=== PATIENT | male | born 1990 | race Caucasian/White ===

== ENCOUNTER 2020-11-04 21:00 | Emergency (ER) | payer OTHER ==
[~2020-11-04] VITALS: Ht 185.4 cm; Wt 127.0 kg
[2020-11-04 21:05] VITALS: BP_SYST 153
[2020-11-04] MEDS ORDERED: FUROSEMIDE 20 MG TABLET PO ONE (23:00)
[2020-11-04 23:35] LABS: BILIRUBIN,URINE NEGATIVE (NEGATIVE); BLOOD, URINE NEGATIVE (NEGATIVE); CLARITY/URINE CLEAR (CLEAR); COLOR,URINE YELLOW (YELLOW); GLUCOSE,URINE NEGATIVE (NEGATIVE); KETONES,URINE NEGATIVE (NEGATIVE); LEUKOCYTE ESTERASE ,URINE NEGATIVE (NEGATIVE); NITRITE, URINE NEGATIVE (NEGATIVE); PH,URINE 6.5 (5.0-8.0); PROTEIN URINE NEGATIVE (NEGATIVE)
[2020-11-04 23:37] LABS: BASOPHILS % (AUTO) 0.4 % (0.0-2.0); EOSINOPHILS # (AUTO) 0.4 K/uL (0.0-0.4); EOSINOPHILS % (AUTO) 4.2 % (0.0-4.0); HEMATOCRIT 42.7 % (36-54); HEMOGLOBIN 14.6 g/dL (14.0-18.0); LYMPHOCYTES # (AUTO) 3.5 K/uL (1.0-5.5); MEAN CORPUSCULAR HEMOGLOBIN 32 pg (27-31); MEAN CORPUSCULAR HGB CONC 34 % (32-36); MEAN CORPUSCULAR VOLUME 92 fL (79.0-98.0); MONOCYTES # (AUTO) 0.7 K/uL (0.0-1.0); MONOCYTES % (AUTO) 7.4 % (1.7-9.3); NEUTROPHILS # (AUTO) 5.1 K/uL (1.8-7.7); PLATELET COUNT (AUTO) 241 K/uL (130-430); RED BLOOD CELL COUNT(AUTO) 4.65 MIL/uL (4.2-6.2); WHITE BLOOD COUNT (AUTO) 9.7 K/uL (4.8-10.8)
[2020-11-04 23:47] LABS: CALCIUM 8.3 mg/dL (8.4-11.0); CREATININE 1.08 mg/dL (0.55-1.30); POTASSIUM 3.8 mmol/L (3.5-5.1)
[2020-11-04 23:54] LABS: ALBUMIN 3.4 g/dL (3.4-4.8); TOTAL BILIRUBIN 0.5 mg/dL (0.0-1.0)
[2020-11-05] MEDS ORDERED: FURO-150 PO (01:08)
[2020-11-05 01:28] VITALS: BP_SYST 128
== END 2020-11-05 01:28 | disposition home or self-care (01) ==
LOC: SED 21:00
DX: R60.0 Localized edema (principal)
CPT/HCPCS: 36415; 71045; 80053; 81003; 82550; 83880; 84484; 85025; 93005; 93970; 99285

== ENCOUNTER 2023-01-17 19:45 | Emergency (ER) | payer OTHER ==
[~2023-01-17] VITALS: Ht 185.4 cm; Wt 136.1 kg
[~2023-01-17 19:45] MED LIST: FURO-150 PO
[2023-01-17 20:04] VITALS: BP_SYST 134; PULSE 110; RESP 21; TEMP 97.7; O2SAT 99
--- NOTE | 2023-01-17 20:11 | NUR ---
PATIENT PRESENTS WITH RIGHT LEG PAIN/INFECTION/REDNESS/ITCHINESS FOLLOWING A VEIN REMOVAL ON 12/29 AT [facility], AREA ABOVE CALF IS INFLAMMED WITH STITCHES INTACT, PATIENT INFORMED STITCHES WOULD DISSOLVE, AREA ON ANKLE HAS DRAINAGE WITH STITCHES INTACT, ANKLE SUTURE SITE APPEARS MACERATED AFTER BANDAGE REMOVAL, BANDAGE REMOVED BY MYSELF, HISTORY OF VENOUS STASIS, BOTH LOWER LEGS ARE DISCOLORED.
[2023-01-17] MEDS ORDERED: NACL 0.9% 1,000 ML IV ONE (20:30)
[2023-01-17] MEDS ORDERED: POTASSIUM CHLORIDE 20 MEQ TAB.PRT.SR PO ONE (20:30)
--- NOTE | 2023-01-17 20:32 | NUR ---
MD ASSESSMENT IN TRIAGE ROOM
[2023-01-17] MEDS ORDERED: CEPH-548 PO ×2 (20:34→20:49)
[2023-01-17] MEDS ORDERED: SULF1TAB48 PO ×2 (20:34→20:49)
[2023-01-17] MEDS ORDERED: HYDR-3917 PO (20:36)
--- NOTE | 2023-01-17 20:51 | NUR ---
Patient given written and verbal discharge instructions and verbalizes understanding. ER MD discussed with patient the results and treatment provided. Patient in stable condition. ID arm band removed. RX SENT TO PREFERRED PHARMACY Rx of given. Patient educated on pain management and to follow up with PMD. Pain Scale 5/10. Opportunity for questions provided and answered. Medication side effect fact sheet provided.
[2023-01-17 20:52] VITALS: BP_SYST 136; PULSE 109; RESP 20; TEMP 97.6; O2SAT 99
== END 2023-01-17 20:52 | disposition home or self-care (01) ==
LOC: SED 19:45
DX: L03.115 Cellulitis of right lower limb (principal); I87.8 Other specified disorders of veins; Z79.899 Other long term (current) drug therapy
CPT/HCPCS: 99283

== ENCOUNTER 2023-01-30 16:56 | Emergency (ER) | payer OTHER ==
[~2023-01-30] VITALS: Ht 185.4 cm; Wt 136.1 kg
[~2023-01-30 16:56] MED LIST changes: +CEPH-548 PO; +SULF1TAB48 PO
[2023-01-30 17:01] VITALS: BP_SYST 128; RESP 18; TEMP 97.3; O2SAT 98
--- NOTE | 2023-01-30 18:35 | NUR ---
Patient to ER bed 8 to gown for evaluation. Side rails up. Report given to YARELI.
[2023-01-30] MEDS ORDERED: CEPH-548 PO (19:05)
[2023-01-30] MEDS ORDERED: cephALEXin 500 MG CAPSULE PO ONE (19:15)
--- NOTE | 2023-01-30 19:17 | NUR ---
Pressure-Irrigated wound w. copious amounts of 0.9% N.S. mixed with Iodine. All insect larvae removed from wound prior to dressing application.
--- NOTE | 2023-01-30 19:20 | NUR ---
Pat-dried cleaned wound & dressed w. dried curlex dressing & tubular gauze. Patient tolerated procedure well. No signs of pain.
--- NOTE | 2023-01-30 19:41 | NUR ---
Patient given written and verbal discharge instructions and verbalizes understanding. ER sindiscussed with patient the results and treatment provided. Patient in stable condition. ID arm band removed. IV catheter removed intact and dressing applied, no active bleeding. Rx of keflex given. Patient educated on pain management and to follow up with PMD. Pain Scale . Opportunity for questions provided and answered. Medication side effect fact sheet provided.
== END 2023-01-30 19:41 | disposition home or self-care (01) ==
LOC: SED 16:56
DX: S91.301A Unspecified open wound, right foot, initial encounter (principal); L03.115 Cellulitis of right lower limb; B87.9 Myiasis, unspecified; Z79.899 Other long term (current) drug therapy; X58.XXXA Exposure to other specified factors, initial encounter; Y93.89 Activity, other specified; Y92.89 Other specified places as the place of occurrence of the external cause; Y99.8 Other external cause status
CPT/HCPCS: 99283

== ENCOUNTER 2023-04-09 15:40 | Emergency (ER) | payer OTHER ==
[~2023-04-09] VITALS: Ht 185.4 cm; Wt 136.1 kg
[2023-04-09 15:59] VITALS: BP_SYST 123; PULSE 111; RESP 16; TEMP 97.8; O2SAT 97
[2023-04-09] MEDS ORDERED: OXYC-133 PO (16:07)
[2023-04-09] MEDS ORDERED: NS 1000 ML IV.SOLN IV ONE (16:30)
[2023-04-09 17:02] LABS: BASOPHILS # (AUTO) 0.1 K/uL (0.0-0.2); BASOPHILS % (AUTO) 0.6 % (0.0-2.0); EOSINOPHILS # (AUTO) 0.4 K/uL (0.0-0.4); HEMATOCRIT 39.5 % (36-54); HEMOGLOBIN 13.2 g/dL (14.0-18.0); LYMPHOCYTES # (AUTO) 1.5 K/uL (1.0-5.5); LYMPHOCYTES % (AUTO) 14.8 % (20.5-51.5); MEAN CORPUSCULAR HEMOGLOBIN 30 pg (27-31); MEAN CORPUSCULAR HGB CONC 33 % (32-36); MEAN CORPUSCULAR VOLUME 90 fL (79.0-98.0); MONOCYTES # (AUTO) 0.9 K/uL (0.0-1.0); MONOCYTES % (AUTO) 9.2 % (1.7-9.3); NEUTROPHILS # (AUTO) 7.1 K/uL (1.8-7.7); NEUTROPHILS % (AUTO) 71.4 % (40.0-70.0); PLATELET COUNT (AUTO) 274 K/uL (130-430); RED BLOOD CELL COUNT(AUTO) 4.39 MIL/uL (4.2-6.2); RED CELL DISTRIBUTION WIDTH 13.9 % (9.0-15.0)
[2023-04-09 17:11] LABS: ANION GAP 3 (5-15); CALCIUM 7.6 mg/dL (8.4-11.0); CARBON DIOXIDE 32 mmol/L (23-29); CHLORIDE 107 mmol/L (98-107); CREATININE 0.99 mg/dL (0.55-1.30); GFR AFRICAN AMERICAN 111 mL/min (>90); GLUCOSE 84 mg/dL (74-106); POTASSIUM 4.4 mmol/L (3.5-5.1); SODIUM SERUM 142 mmol/L (136-145); UREA NITROGEN, BLOOD 9 mg/dL (8-21)
[2023-04-09] MEDS ORDERED: BACITRACIN 1 GM OINT TP ONE (17:15)
[2023-04-09 17:18] LABS: ALANINE AMINOTRANSFERASE 23 U/L (12-78); ALBUMIN 2.9 g/dL (3.4-4.8); ASPARTATE AMINOTRANSFERASE 15 U/L (10-37); TOTAL BILIRUBIN 0.9 mg/dL (0.0-1.0); TOTAL PROTEIN, SERUM 6.9 g/dL (6.4-8.3)
[2023-04-09 17:23] LABS: GFR NON AFRICAN-AMERICAN 92 mL/min (>90)
[2023-04-09] MEDS ORDERED: CEPH-548 PO (18:18)
[2023-04-09 18:38] VITALS: BP_SYST 117; PULSE 100; RESP 19; TEMP 97.9; O2SAT 98
== END 2023-04-09 18:37 | disposition home or self-care (01) ==
LOC: SED 15:40
DX: S81.801A Unspecified open wound, right lower leg, initial encounter (principal); L03.115 Cellulitis of right lower limb; I87.2 Venous insufficiency (chronic) (peripheral); B87.9 Myiasis, unspecified; Z79.899 Other long term (current) drug therapy; X58.XXXA Exposure to other specified factors, initial encounter; Y93.89 Activity, other specified; Y92.89 Other specified places as the place of occurrence of the external cause; Y99.8 Other external cause status
CPT/HCPCS: 99284; 96360; 80053; 85025; 87040; 84484; 36415; 93005; 83605; J7030